=== PATIENT | female | born 1990 | race Two or more races ===

== ENCOUNTER 2024-10-26 05:37 | Emergency (ER) | payer OTHER ==
[~2024-10-26] VITALS: Ht 162.6 cm; Wt 115.9 kg
[2024-10-26 06:31] LABS: INR 1.01 (0.9-1.15); Partial Thromboplastin Time 27.9 SEC (24.5-34.5); Prothrombin Time 10.7 sec (9.3-11.8)
[2024-10-26 06:35] LABS: Albumin 4.7 g/dL (3.2-4.8); Alkaline Phosphatase 72 U/L (46-116); Anion Gap 7 (5-15); BUN/Creatinine Ratio 14.7 (10.0-20.0); Bilirubin, Total 0.6 mg/dL (0.2-1.0); Blood Urea Nitrogen 11 mg/dL (9-23); Calcium 10.1 mg/dL (8.7-10.4); Carbon Dioxide 25 mmol/L (20-31); Chloride 107 mmol/L (98-107); Magnesium 2.1 mg/dL (1.6-2.6); Sodium 139 mmol/L (136-145); Total Protein 7.7 g/dL (5.7-8.2)
[2024-10-26 06:39] LABS: Basophils # (auto) 0 10 ^3/uL (0-0.2); Basophils % (auto) 0.7 % (0.0-2.0); Eosinophils # (auto) 0.1 10 ^3/uL (0-0.8); Hematocrit 44.9 % (36.0-46.0); Hemoglobin 15.5 g/dL (12.2-16.2); Lymphocytes # (auto) 2.8 10 ^3/uL (0.4-5.4); Lymphocytes % (auto) 37.9 % (10.0-50.0); Mean Corpuscular Hemoglobin 29.7 pg (28.0-32.0); Mean Corpuscular Hgb Conc. 34.6 g/dL (32.0-36.0); Mean Corpuscular Volume 85.8 fL (80.0-100.0); Monocytes # (auto) 0.4 10 ^3/uL (0-1.3); Monocytes % (auto) 5.5 % (0.0-12.0); Neutrophils % (auto) 53.9 % (37.0-80.0); Nucleated Red Blood Cells % 0.2 %; Platelet Count (auto) 244 10^3/uL (140-450); Red Blood Cells 5.23 10^6/uL (4.0-5.20); Red Cell Distribution Width 12.7 % (11.8-14.3); White Blood Cell 7.4 10^3/uL (4.4-10.8)
--- NOTE | 2024-10-26 06:40 | ED.PDOC ---
History of Present Illness HPI Comments 34 y/o F, with a Hx of anxiety and morbid obesity, presents with c/o palpitations and shortness of breath for 1x day, today. Patient endorses on unprovoked and sudden onset of intermittent palpitation episodes, with associated difficulty breathing, that has been ongoing since yesterday. Patient reports having 1-2x episodes, yesterday, that subsided on their on, with most recent onset taking place at 0400, this morning, with no relief or improvement with her Lexapro anxiety medication use. Patient describes palpitations as her "heart" skipping a beat," "fluttering," and and being "fast." Upon arrival to ED triage, she was found with an elevated blood pressure of 152/91, with no endorse ment of any Hx of HTN in the past. She states on no recent stressors, strenuous activities, travel, sick contact, or substance use/exposure. She denies having any chest pain, nausea, vomiting, cough, fever, chills, or other associated symptoms or modifiers at this time. Chief Complaint: Palpitations Time Seen by MD: 06:30 Primary Care Provider: Nick Reviewed Notes: Nurses Notes, Medications, Allergies Allergies: Coded Allergies: NO KNOWN ALLERGIES (Unverified , 10/26/24) Home Meds Active Scripts Metformin Hydrochloride (METFORMIN HCL ER) 500 Mg Tab, 1 TAB PO DAILY for 30 Days, #30 TAB 1 Refill Prov:JAMEY AGOSTO MD 10/26/24 Atenolol (Atenolol) 25 Mg Tab, 1 TAB PO bed time, #30 TAB 5 Refills Prov:JAMEY AGOSTO MD 10/26/24 Information Source: Patient Mode of Arrival: Ambulatory Severity: Moderate Timing: Days Duration: Since onset Prehospital treatment: Other (see HPI) Past Medical History PAST MEDICAL HISTORY: Anxiety, Depression Past Medical History (Other): morbid obesity, fibromyalgia Surgical History (Other): cosmetic "extra toe" removal METALLURGICAL TECHNICIAN History: Denies all METALLURGICAL TECHNICIAN Hx LMP 10/14/24 Family History Family History: Unknown Social History Smoker: Non-Smoker Alcohol: Denies ETOH Use Drugs: Marijuana Lives In: Home Respiratory: reports: shortness of breath Cardiovascular: reports: palpitations All Other Systems: Reviewed and Negative (negative unless otherwise stated in HPI) Physical Exam General Appearance: No Apparent Distress, Obese HEENT: Normal ENT Inspection, PERRL/EOMI Neck: Full Range of Motion, Non-Tender Respiratory: Lungs Clear, No Respiratory Distress, Normal Breath Sounds Cardiovascular: No Edema, No JVD, No Murmur, No Gallop, Normal Peripheral Pul ses, Regular Rate/Rhythm Breast Exam: Deferred Gastrointestinal: No Organomegaly, Non Tender, No Pulsatile Mass, Normal Bowel Sounds, Soft Genitalia: Deferred Pelvic: Deferred Rectal: Deferred Extremities: No calf tenderness, Normal capillary refill, Normal inspection, Normal range of motion, Non-tender, No pedal edema Neurologic: Alert, nautical instrument mechanic II-XII nml as Tested, No Motor Deficits, Normal Affect, Normal Mood, No Sensory Deficits Cerebellar Function: Normal Reflexes: Normal Skin: Dry, Normal Color, Warm Peripheral Pulses: 1+ carotid (R), 1+ carotid (L) Lymphatic: No Adenopathy Was a procedure done? Was a procedure done?: No EKG EKG : Pulse Rate (adult): 76 [place]: Normal Cardiac Rhythm: NSR Block: None Hypertrophy: None ST: Normal Differential Dx Considerations may include: arrhythmia, anxiety, panic attack, HTN new onset, electrolyte imbalance X-Ray, Labs, Meds, VS Vital Signs Date Time Temp Pulse Resp B/P (MAP) Pulse Ox O2 Delivery O2 Flow Rate FiO2 10/26/24 06:51 70 10/26/24 06:40 76 10/26/24 05:42 76 10/26/24 05:40 98.1 75 18 152/91 (111) 98 Lab Test 10/26/24 06:43 10/26/24 05:48 Range/Units Troponin I High Sensitivity Pending 4 </=34 ng/L White Blood Count 7.4 4.4-10.8 10^3/uL Red Blood Count 5.23 H 4.0-5.20 10^6/uL Hemoglobin 15.5 12.2-16.2 g/dL Hematocrit 44.9 36.0-46.0 % Mean Corpuscular Volume 85.8 80.0-100.0 fL Mean Corpuscular Hemoglobin 29.7 28.0-32.0 pg Mean Corpuscular Hemoglobin Concent 34.6 32.0-36.0 g/dL Red Cell Distribution Width 12.7 11.8-14.3 % Platelet Count 244 140-450 10^3/uL Mean Platelet Volume 9.5 6.9-10.8 fL Neutrophils (%) (Auto) 53.9 37.0-80.0 % Lymphocytes (%) (Auto) 37.9 10.0-50.0 % Monocytes (%) (Auto) 5.5 0.0-12.0 % Eosinophils (%) (Auto) 2.0 0.0-7.0 % Basophils (%) (Auto) 0.7 0.0-2.0 % Neutrophils # (Auto) 4.0 1.6-8.6 10 ^3/uL Lymphocytes # (Auto) 2.8 0.4-5.4 10 ^3/uL Monocytes # (Auto) 0.4 0-1.3 10 ^3/uL Eosinophils # (Auto) 0.1 0-0.8 10 ^3/uL Basophils # (Auto) 0 0-0.2 10 ^3/uL Nucleated Red Blood Cells 0.2 % Prothrombin Time 10.7 9.3-11.8 sec Prothrombin Time INR 1.01 0.9-1.15 Activated Partial Thromboplast Time 27.9 24.5-34.5 SEC Sodium Level 139 136-145 mmol/L Potassium Level 3.4 L 3.5-5.1 mmol/L Chloride Level 107 98-107 mmol/L Carbon Dioxide Level 25 20-31 mmol/L Anion Gap 7 5-15 Blood Urea Nitrogen 11 9-23 mg/dL Creatinine 0.75 0.550-1.02 mg/dL Glomerular Filtration Rate Calc 108 >90 mL/min BUN/Creatinine Ratio 14.7 10.0-20.0 Serum Glucose 166 H 74-106 mg/dL Calcium Level 10.1 8.7-10.4 mg/dL Magnesium Level 2.1 1.6-2.6 mg/dL Total Bilirubin 0.6 0.2-1.0 mg/dL Aspartate Amino Transferase (AST) 41 H 13-40 U/L Alanine Aminotransferase (ALT) 94 H 7-40 U/L Alkaline Phosphatase 72 46-116 U/L B-Type Natriuretic Peptide Pending Total Protein 7.7 5.7-8.2 g/dL Albumin 4.7 3.2-4.8 g/dL CXR:FINDINGS: Lines and Tubes: None Lungs: Clear Pleura: No effusion. No pneumothorax. Cardiomediastinal contours: Unremarkable Bones: Unremarkable IMPRESSION: No acute disease. X-Ray, Labs, Meds, VS Comment Course in the emergency department eventful patient came in complaining of palpitation which woke her up around 4:00 a.m. this morning with some chest pressure Blood pressure 152/91 Patient with a history of fibromyalgia depression anxiety Chest x-ray is normal EKG shows normal sinus rhythm at 76 CBC normal CMP potassium at 3.4 blood sugar 166 liver enzymes elevated BNP pending Troponin for INR 1.09 Magnesium 2.1 Patient is in no acute distress and will be discharged home to follow up with her PCP Time of 1ST Reevaluation: 07:00 Reevaluation 1ST: Unchanged Patient Education/Counseling: Diagnosis, Treatment Family Education/Counseling: No Family Present Departure 1 Departure Time of Disposition: 07:06 Impression: Primary Impression: Intermittent palpitations Additional Impressions: Hyperglycemia Hypertension Qualified Codes: I15.2 - Hypertension secondary to endocrine disorders Morbid obesity due to excess calories Hypokalemia Disposition: HOME / SELF CARE / HOMELESS Condition: Good Additional Instructions: Patient will need to push fluids and to follow up with PCP to address her hyperglycemia and blood pressure e-Prescriptions Metformin Hydrochloride (METFORMIN HCL ER) 500 Mg Tab 1 TAB PO DAILY for 30 Days, #30 TAB 1 Refill Prov: JAMEY AGOSTO MD 10/26/24 Atenolol (Atenolol) 25 Mg Tab 1 TAB PO bed time, #30 TAB 5 Refills Prov: JAMEY AGOSTO MD 10/26/24 Discharged With: Self Critical Care Note Critical Care Time?: No Stability Stability form required: No Heart Score Heart Score: Heart Score Response (Comments) Value History Slightly Suspicious 0 EKG Normal 0 Age <45 0 Risk Factors 1 or 2 risk factors 1 Troponin Normal limit 0 Total 1 I personally scribed for JAMEY AGOSTO MD ([email or web address]) on 10/26/24 at 06:40. Electronically submitted by Jefferson Cardenas ([email or web address]). I personally scribed for JAMEY AGOSTO MD ([email or web address]) on 10/26/24 at 07:03. Electronically submitted by Jefferson Cardenas ([email or web address]). JAMEY AGOSTO MD Oct 26, 2024 06:40
[2024-10-26 06:47] LABS: Alanine Aminotransferase 94 U/L (7-40); Aspartate Aminotransferase 41 U/L (13-40); Glucose 166 mg/dL (74-106); Potassium 3.4 mmol/L (3.5-5.1)
--- NOTE | 2024-10-26 06:53 | ECG ---
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
--- NOTE | 2024-10-26 06:55 | DVH ---
CHEST RADIOGRAPH Indication: CP Technique: Single frontal view of the chest was obtained COMPARISON: None FINDINGS: Lines and Tubes: None Lungs: Clear Pleura: No effusion. No pneumothorax. Cardiomediastinal contours: Unremarkable Bones: Unremarkable IMPRESSION: No acute disease.
[2024-10-26] MEDS ORDERED: ATEN-60 PO (06:56)
[2024-10-26] MEDS ORDERED: METF-489 PO (06:56)
--- NOTE | 2024-10-26 06:56 | ECG ---
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
[2024-10-26] MEDS: POTASSIUM EFFERVESENT TAB 25 MEQ PO ONE (07:14)
[2024-10-26 07:18] VITALS: BP 142/87; PULSE 77; RESP 17; TEMP 98.7; O2SAT 97
== END 2024-10-26 07:17 | disposition home or self-care (01) ==
LOC: ER 05:37 → EEVIPCON 05:37 → ER 07:17
DX: R00.2 Palpitations (principal); R73.9 Hyperglycemia, unspecified; I10 Essential (primary) hypertension; E66.01 Morbid (severe) obesity due to excess calories; E87.6 Hypokalemia; M79.7 Fibromyalgia; Z79.84 Long term (current) use of oral hypoglycemic drugs; Z79.899 Other long term (current) drug therapy; Z98.890 Other specified postprocedural states
CPT/HCPCS: 36415; 71045; 80053; 83735; 83880; 84484; 85025; 85610; 85730; 93005